=== PATIENT | female | born 1965 | race Caucasian/White ===

== ENCOUNTER → 2017-09-28 | Outpatient (CLI) | payer BC ==
[~2017-09-28] MED LIST: NS 100 ML IV 100 ML IV ONE
--- NOTE | 2017-09-28 10:23 | CT ---
History: Abdominal and pelvic pain. Pelvic/ovarian cysts. Exam: Postcontrast CT examination the abdomen and pelvis. Technique: Axial postcontrast CT imaging of the abdomen and pelvis is performed from the lung bases t o the pubic symphysis with IV contrast with sagittal and coronal reformatted images. Comparison: None available. Findings: The lung bases are clear. The liver is slightly fatty in appearance but otherwise unremarkable. There is a small hiatal hernia. The pancreas, spleen, adrenal glands, kidneys, and stomach are unremarkabl e in appearance. There is no evidence for free air or drainable intraperitoneal fluid collection. The re is no evidence for acute diverticulitis or colitis. There is scattered sigmoid colonic diverticulo sis some thickening of the distal descending colonic wall and sigmoid colonic wall which could be sec ondary to prior episodes of diverticulitis. This can be followed up with colonoscopy, if not previous ly performed. There is a left ovarian/adnexal cystic lesion which measures 37 x 30 mm. This could ref lect a cystadenoma but probably reflects an ovarian follicular cyst. There is also a small right adne xal/ovarian 20 mm cystic lesion which probably reflects an ovarian follicular cyst. These can be foll owed up sonographically in 6-8 weeks for stability. If these cystic lesions persist on subsequent ult rasonography, then inspector and hand packager consultation is needed. There is no evidence for malignant ascites or metas tatic disease. No pathologic abdominopelvic adenopathy is seen. The remaining pelvic organs are unrem arkable in appearance. The bladder is unremarkable in appearance. No acute fracture or destructive ly tic bony lesion/process is seen. There is degenerative disc disease at the lumbosacral junction with there is also moderate foraminal spinal canal narrowing with slight retrolisthesis of L5 on S1 and va cuum disc phenomenon at L5-S1. This can be followed up with MRI imaging of the L-spine. Impression: Left ovarian/adnexal cystic lesion which measures 37 x 30 mm. This dominant pelvic lesion could refle ct a cystadenoma but probably reflects an ovarian follicular cyst. Small right adnexal/ovarian 20 mm cystic lesion which probably reflects an ovarian follicular cyst. T hese cystic lesions can be followed up sonographically in 6-8 weeks for stability. If these cystic le sions persist on subsequent ultrasonography, then inspector and hand packager consultation is needed. No CT evidence for m alignant ascites or metastatic disease, however. No pathologic adenopathy is seen. No other pelvic le sions seen. Scattered sigmoid colonic diverticulosis w/ some thickening of the distal descending colonic wall and sigmoid colonic wall which could be secondary to old episodes of diverticulitis. This can be followe d up with colonoscopy, if not previously performed. No CT imaging evidence for active diverticulitis, however. Slightly fatty liver. Small hiatal hernia. L5-S1 degenerative disc disease, as above, which creates m oderate foraminal and spinal canal narrowing at this level. Reported By:
== END | disposition home or self-care (01) ==
LOC: RAD 08:58
PROVIDERS: ATTEND Obstetrics & Gynecology
DX: R10.2 Pelvic and perineal pain (principal); N83.8 Other noninflammatory disorders of ovary, fallopian tube and broad ligament
CPT/HCPCS: 36415; 74177; 82565; 84520; A4222